=== PATIENT | female | born 1975 | race Caucasian/White ===

== ENCOUNTER → 2016-06-05 | Outpatient (CLI) | payer OTHER ==
[~2016-06-05] MED LIST: NKHM; NORCO 5-325 TA1 EACH PO; PERCOCET 325 MG1 TA2 PO; PRILOSEC20 MG PO
== END | disposition home or self-care (01) ==
LOC: RAD 10:46
DX: R07.9 Chest pain, unspecified (principal); R05 Cough; R09.89 Other specified symptoms and signs involving the circulatory and respiratory systems

== ENCOUNTER → 2017-04-30 | Outpatient (CLI) | payer OTHER ==
[~2017-04-30] MED LIST changes: +ADDERALL XR20 MG PO; +FLUOXETINE HCL10 MG PO
[2017-04-30 11:42] LABS: HEMOGLOBIN 15.2 g/dl (12.0-16.0); MEAN CORPUSCULAR HGB 31.1 pg (27.0-31.0); MEAN CORPUSCULAR HGB CONC 33.8 g/dl (33.0-37.0); MEAN PLATELET VOLUME 9.9 fl (9.6-12.3); RED BLOOD COUNT 4.89 10*6/uL (4.10-5.10); RED CELL DISTRI WIDTH 13.7 % (0-14.5); WHITE BLOOD COUNT 7.2 10*3/uL (4.8-10.8)
[2017-04-30 12:06] LABS: ALBUMIN 3.6 gm/dl (3.1-4.5); BUN 7 mg/dl (7-24); CHLORIDE 110 mmol/L (98-107); CREATININE 0.88 mg/dL (0.55-1.02); POTASSIUM 4.3 mmol/L (3.5-5.1); SODIUM 139 mmol/L (136-145)
[2017-04-30 12:10] LABS: ALKALINE PHOSPHATASE 137 U/L (45-117); CHOLESTEROL 167 mg/dL (<200); HDL CHOLESTEROL 57 mg/dl (40-60); LDL CHOLESTEROL 89 mg/dL (9-159); SGOT/AST 52 IU/L (3-35); SGPT/ALT 54 U/L (12-78); TOTAL PROTEIN 7.9 gm/dL (6.4-8.2); TRIGLYCERIDES 103 mg/dl (<150); VLDL CHOLESTEROL 21 mg/dL (6-40)
== END | disposition home or self-care (01) ==
LOC: LAB 11:05
PROVIDERS: Family Medicine
DX: E55.9 Vitamin D deficiency, unspecified (principal); R05 Cough; R07.9 Chest pain, unspecified; R53.83 Other fatigue; F17.200 Nicotine dependence, unspecified, uncomplicated

== ENCOUNTER → 2017-05-01 | Outpatient (CLI) | payer OTHER | END | disposition home or self-care (01) | LOC: MAMMO 08:50 | DX: N63.20 Unspecified lump in the left breast, unspecified quadrant (principal) ==

== ENCOUNTER 2017-05-02 12:34 | Emergency (ER) | payer OTHER ==
[~2017-05-02] VITALS: Ht 157.4 cm; Wt 54.4 kg
[~2017-05-02 12:34] MED LIST changes: -ADDERALL XR20 MG PO; -FLUOXETINE HCL10 MG PO
[2017-05-02] MEDS ORDERED: FLUOXETINE HCL10 MG PO (12:57)
[2017-05-02] MEDS ORDERED: ADDERALL XR20 MG PO (12:58)
[2017-05-02 14:05] LABS: BASO # 0.1 10*3/uL (0.0-0.1); BASO % 0.6 % (0.0-1.0); EOS # 0.1 10*3/uL (0.0-0.4); EOS % 1.5 % (1.0-4.0); HEMATOCRIT 42.2 % (37.0-47.0); HEMOGLOBIN 14.1 g/dl (12.0-16.0); LYMPH # 2.7 10*3/uL (1.3-4.4); LYMPH % 31.6 % (27.0-41.0); MEAN CELL VOLUME 92.3 fl (81.0-99.0); MEAN CORPUSCULAR HGB 30.9 pg (27.0-31.0); MEAN CORPUSCULAR HGB CONC 33.4 g/dl (33.0-37.0); MEAN PLATELET VOLUME 9.7 fl (9.6-12.3); MONO # 0.6 10*3/uL (0.1-1.0); MONO % 6.5 % (3.0-9.0); NEUT # 5.1 10*3/uL (2.3-7.9); NEUT % 59.6 % (47.0-73.0); PLATELET COUNT AUTOMATED 236 10*3/uL (130-400); RED BLOOD COUNT 4.57 10*6/uL (4.10-5.10); RED CELL DISTRI WIDTH 13.6 % (0-14.5); WHITE BLOOD COUNT 8.5 10*3/uL (4.8-10.8)
[2017-05-02 14:24] LABS: BUN 6 mg/dl (7-24); CHLORIDE 106 mmol/L (98-107); CREATININE 0.69 mg/dL (0.55-1.02); POTASSIUM 4.3 mmol/L (3.5-5.1); SODIUM 138 mmol/L (136-145)
[2017-05-02 14:26] LABS: TROPONIN I < 0.015 ng/ml (<0.045)
[2017-05-02 14:49] LABS: ACT PARTIAL THROMBO TIME 26.9 SECONDS (20.8-31.5); INTERNATIONAL NORM RATIO 1.1 (2.0-3.5)
== END 2017-05-02 17:25 | disposition home or self-care (01) ==
LOC: ED 12:34
PROVIDERS: Emergency Medicine
DX: S22.32XA Fracture of one rib, left side, initial encounter for closed fracture (principal); R09.1 Pleurisy; F17.200 Nicotine dependence, unspecified, uncomplicated; Z90.89 Acquired absence of other organs; Z79.899 Other long term (current) drug therapy; X58.XXXA Exposure to other specified factors, initial encounter; Y93.89 Activity, other specified; Y92.89 Other specified places as the place of occurrence of the external cause; Y99.9 Unspecified external cause status

== ENCOUNTER → 2017-11-25 | Outpatient (CLI) | payer OTHER ==
[~2017-11-25] MED LIST changes: +ADDERALL XR20 MG PO; +FLUOXETINE HCL10 MG PO
== END | disposition home or self-care (01) ==
LOC: RAD 09:58
DX: J42 Unspecified chronic bronchitis (principal); R07.81 Pleurodynia

== ENCOUNTER → 2017-11-26 | Outpatient (CLI) | payer OTHER ==
[2017-11-26 11:39] LABS: HEMATOCRIT 42.9 % (37.0-47.0); HEMOGLOBIN 13.7 g/dl (12.0-16.0); MEAN CORPUSCULAR HGB 30.6 pg (27.0-31.0); MEAN CORPUSCULAR HGB CONC 31.9 g/dl (33.0-37.0); RED BLOOD COUNT 4.47 10*6/uL (4.10-5.10); RED CELL DISTRI WIDTH 13.7 % (0-14.5); WHITE BLOOD COUNT 6.9 10*3/uL (4.8-10.8)
[2017-11-26 12:07] LABS: ALBUMIN 3.4 gm/dl (3.1-4.5); BUN 4 mg/dl (7-24); CHLORIDE 108 mmol/L (98-107); CHOLESTEROL 167 mg/dL (<200); CREATININE 0.81 mg/dL (0.55-1.02); POTASSIUM 3.7 mmol/L (3.5-5.1); SGOT/AST 62 IU/L (3-35); SGPT/ALT 68 U/L (12-78); SODIUM 139 mmol/L (136-145); TRIGLYCERIDES 129 mg/dl (<150); VLDL CHOLESTEROL 26 mg/dL (6-40)
[2017-11-26 12:17] LABS: ALKALINE PHOSPHATASE 169 U/L (45-117); CPK 71 U/L (26-192); HDL CHOLESTEROL 41 mg/dl (40-60); LDL CHOLESTEROL 100 mg/dL (9-159); TOTAL PROTEIN 7.4 gm/dL (6.4-8.2)
[2017-11-26 13:25] LABS: VITAMIN D, 25-HYDROXY 39.2 ng/mL (30-100)
[2017-11-27 08:09] LABS: HEPATITIS B SURFACE AG Negative (Negative); HEPATITIS C VIRUS ANTIBODY <0.1 s/co (0.0-0.9)
[2017-11-27 13:06] LABS: ANTI-DSDNA ANTIBODIES 096339 1 IU/mL (0-9)
[2017-11-27 14:08] LABS: ANTI-SMOOTH MUSCLE ANTIBODY 71 Units (0-19)
== END | disposition home or self-care (01) ==
LOC: LAB 11:09
PROVIDERS: Family Medicine
DX: J32.9 Chronic sinusitis, unspecified (principal); R10.9 Unspecified abdominal pain; K75.9 Inflammatory liver disease, unspecified; M25.50 Pain in unspecified joint; M79.1 Myalgia

== ENCOUNTER → 2017-11-27 | Outpatient (CLI) | payer OTHER | END | disposition home or self-care (01) | LOC: US 09:48 | DX: K75.4 Autoimmune hepatitis (principal); R10.11 Right upper quadrant pain ==

== ENCOUNTER → 2017-12-03 | Outpatient (CLI) | payer OTHER | END | disposition home or self-care (01) | LOC: LAB 12:14 | DX: R76.0 Raised antibody titer (principal) ==

== ENCOUNTER → 2017-12-04 | Outpatient (CLI) | payer OTHER | END | disposition home or self-care (01) | LOC: CT 10:00 | DX: K76.89 Other specified diseases of liver (principal) ==

== ENCOUNTER → 2017-12-25 | Outpatient (CLI) | payer OTHER ==
[2017-12-25 08:42] LABS: BASO # 0.1 10*3/uL (0.0-0.1); BASO % 0.7 % (0.0-1.0); EOS # 0.2 10*3/uL (0.0-0.4); EOS % 2.3 % (1.0-4.0); HEMATOCRIT 41.7 % (37.0-47.0); HEMOGLOBIN 13.5 g/dl (12.0-16.0); LYMPH % 27.4 % (27.0-41.0); MEAN CORPUSCULAR HGB 30.8 pg (27.0-31.0); MEAN CORPUSCULAR HGB CONC 32.4 g/dl (33.0-37.0); MEAN PLATELET VOLUME 9.5 fl (9.6-12.3); MONO # 0.7 10*3/uL (0.1-1.0); MONO % 9.2 % (3.0-9.0); NEUT # 4.5 10*3/uL (2.3-7.9); NEUT % 60.3 % (47.0-73.0); PLATELET COUNT AUTOMATED 266 10*3/uL (130-400); RED BLOOD COUNT 4.39 10*6/uL (4.10-5.10); RED CELL DISTRI WIDTH 13.5 % (0-14.5); WHITE BLOOD COUNT 7.4 10*3/uL (4.8-10.8)
[2017-12-25 09:24] LABS: ACT PARTIAL THROMBO TIME 25.7 SECONDS (20.8-31.5)
== END | disposition home or self-care (01) ==
LOC: LAB 08:12
PROVIDERS: Family Medicine
DX: K75.4 Autoimmune hepatitis (principal); K74.3 Primary biliary cirrhosis

== ENCOUNTER → 2018-01-14 | Outpatient (CLI) | payer OTHER ==
[2018-01-14 13:16] LABS: ALBUMIN 3.6 gm/dl (3.1-4.5); BILIRUBIN, DIRECT 0.1 mg/dL (0.0-0.2)
[2018-01-14 13:19] LABS: TOTAL PROTEIN 7.5 gm/dL (6.4-8.2)
[2018-01-22 21:09] LABS: TPMT GENOTYPE *1/*1 (.)
== END | disposition home or self-care (01) ==
LOC: LAB 12:23
PROVIDERS: Internal Medicine Gastroenterology
DX: K75.4 Autoimmune hepatitis (principal); K74.3 Primary biliary cirrhosis

== ENCOUNTER → 2018-08-26 | Outpatient (CLI) | payer OTHER | END | disposition home or self-care (01) | LOC: MAMMO 11:04 | DX: N63.21 Unspecified lump in the left breast, upper outer quadrant (principal); N63.11 Unspecified lump in the right breast, upper outer quadrant ==

== ENCOUNTER → 2019-03-16 | Outpatient (CLI) | payer OTHER ==
[2019-03-16 12:15] LABS: THYROID STIM HORMONE (HS) 1.21 uIU/ml (0.358-4.75)
[2019-03-17 08:06] LABS: RHEUMATOID ARTHRITIS FACTOR <10.0 IU/mL (0.0-13.9)
[2019-03-17 17:04] LABS: NUCLEAR DOT PATTERN >1:1280 (.)
== END | disposition home or self-care (01) ==
LOC: LAB 11:10
PROVIDERS: Family Medicine
DX: E55.9 Vitamin D deficiency, unspecified (principal); E78.00 Pure hypercholesterolemia, unspecified; M79.10 Myalgia, unspecified site; E74.9 Disorder of carbohydrate metabolism, unspecified; R53.83 Other fatigue

== ENCOUNTER → 2019-03-18 | Outpatient (CLI) | payer OTHER | END | disposition home or self-care (01) | LOC: RAD 11:01 | DX: M54.2 Cervicalgia (principal) ==

== ENCOUNTER → 2019-03-22 | Outpatient (CLI) | payer OTHER | END | disposition home or self-care (01) | LOC: LAB 10:09 | DX: R76.0 Raised antibody titer (principal) ==

== ENCOUNTER → 2019-03-23 | Outpatient (CLI) | payer OTHER ==
[2019-03-23 14:49] LABS: HEMATOCRIT 42.9 % (37.0-47.0); HEMOGLOBIN 13.8 g/dl (12.0-16.0); MEAN CELL VOLUME 96.8 fl (81.0-99.0); MEAN CORPUSCULAR HGB 31.2 pg (27.0-31.0); MEAN CORPUSCULAR HGB CONC 32.2 g/dl (33.0-37.0); MEAN PLATELET VOLUME 10.1 fl (9.6-12.3); RED BLOOD COUNT 4.43 10*6/uL (4.10-5.10); RED CELL DISTRI WIDTH 13.2 % (0-14.5); WHITE BLOOD COUNT 8.1 10*3/uL (4.8-10.8)
[2019-03-23 15:07] LABS: ALBUMIN 3.6 gm/dl (3.1-4.5); ALKALINE PHOSPHATASE 91 U/L (45-117); BUN 7 mg/dl (7-24); CHLORIDE 109 mmol/L (98-107); CREATININE 0.92 mg/dL (0.55-1.02); POTASSIUM 3.9 mmol/L (3.5-5.1); SGOT/AST 10 IU/L (3-35); SGPT/ALT 18 U/L (12-78); SODIUM 138 mmol/L (136-145); TOTAL PROTEIN 7.3 gm/dL (6.4-8.2)
[2019-03-24 04:05] LABS: RHEUMATOID ARTHRITIS FACTOR <10.0 IU/mL (0.0-13.9)
[2019-03-24 12:03] LABS: ANTI-DSDNA ANTIBODIES 096339 1 IU/mL (0-9)
== END | disposition home or self-care (01) ==
LOC: LAB 14:27
PROVIDERS: Family Medicine
DX: M25.50 Pain in unspecified joint (principal)

== ENCOUNTER → 2019-06-10 | Outpatient (CLI) | payer OTHER | END | disposition home or self-care (01) | LOC: NM 00:29 | DX: M25.50 Pain in unspecified joint (principal); M89.8X9 Other specified disorders of bone, unspecified site; K21.9 Gastro-esophageal reflux disease without esophagitis; M35.00 Sjogren syndrome, unspecified; R73.03 Prediabetes ==

== ENCOUNTER → 2019-09-21 | Outpatient (CLI) | payer OTHER | END | disposition home or self-care (01) | LOC: LAB 13:11 | DX: M25.50 Pain in unspecified joint (principal) ==

== ENCOUNTER → 2019-12-28 | Outpatient (CLI) | payer OTHER | END | disposition home or self-care (01) | LOC: COVID19 10:29 | PROVIDERS: ATTEND Family Medicine | DX: R05 Cough (principal); R50.9 Fever, unspecified; Z20.828 Contact with and (suspected) exposure to other viral communicable diseases ==

== ENCOUNTER → 2019-12-31 | Outpatient (CLI) | payer OTHER | END | disposition home or self-care (01) | LOC: RAD 10:03 | PROVIDERS: ATTEND Family Medicine | DX: J18.9 Pneumonia, unspecified organism (principal); R06.02 Shortness of breath; R05 Cough; R50.9 Fever, unspecified ==

== ENCOUNTER → 2020-05-01 | Outpatient (CLI) | payer OTHER ==
[2020-05-01 11:42] LABS: HEMATOCRIT 43.1 % (37.0-47.0); MEAN CELL VOLUME 91.7 fl (81.0-99.0); MEAN CORPUSCULAR HGB 30.4 pg (27.0-31.0); MEAN CORPUSCULAR HGB CONC 33.2 g/dl (33.0-37.0); MEAN PLATELET VOLUME 9.9 fl (9.6-12.3); RED BLOOD COUNT 4.7 10*6/uL (4.10-5.10); RED CELL DISTRI WIDTH 12.8 % (0-14.5); WHITE BLOOD COUNT 7.9 10*3/uL (4.8-10.8)
[2020-05-01 12:23] LABS: ALBUMIN 3.5 gm/dl (3.1-4.5); ALKALINE PHOSPHATASE 138 U/L (45-117); BUN 6 mg/dl (7-24); CHLORIDE 109 mmol/L (98-107); CREATININE 0.86 mg/dL (0.55-1.02); POTASSIUM 4.1 mmol/L (3.5-5.1); SGOT/AST 27 IU/L (3-35); SGPT/ALT 29 U/L (12-78); SODIUM 140 mmol/L (136-145); TOTAL PROTEIN 7.2 gm/dL (6.4-8.2)
[2020-05-02 04:06] LABS: RHEUMATOID ARTHRITIS FACTOR <10.0 IU/mL (0.0-13.9)
[2020-05-02 14:08] LABS: ANTI-SMOOTH MUSCLE ANTIBODY 26 Units (0-19)
== END | disposition home or self-care (01) ==
LOC: RAD 10:51
PROVIDERS: ATTEND Family Medicine
DX: K21.9 Gastro-esophageal reflux disease without esophagitis (principal); M25.50 Pain in unspecified joint; M79.10 Myalgia, unspecified site; M79.643 Pain in unspecified hand

== ENCOUNTER → 2020-05-09 | Outpatient (CLI) | payer OTHER | END | disposition home or self-care (01) | LOC: LAB 09:42 | PROVIDERS: ATTEND Family Medicine | DX: R76.0 Raised antibody titer (principal) ==

== ENCOUNTER → 2020-06-12 | Outpatient (CLI) | payer OTHER | END | disposition home or self-care (01) | LOC: COVID19 08:49 → RAD 08:49 | PROVIDERS: ATTEND Nurse Practitioner Family | DX: J18.1 Lobar pneumonia, unspecified organism (principal); R68.83 Chills (without fever); Z20.822 Contact with and (suspected) exposure to COVID-19 ==

== ENCOUNTER → 2020-06-28 | Outpatient (CLI) | payer OTHER | END | disposition home or self-care (01) | LOC: RAD 06-27 13:19 | PROVIDERS: ATTEND Family Medicine | DX: J18.9 Pneumonia, unspecified organism (principal) ==

== ENCOUNTER → 2020-06-30 | Outpatient (CLI) | payer OTHER ==
[2020-06-30 14:51] LABS: HEMATOCRIT 41.9 % (37.0-47.0); MEAN CELL VOLUME 92.1 fl (81.0-99.0); MEAN CORPUSCULAR HGB 29.9 pg (27.0-31.0); MEAN CORPUSCULAR HGB CONC 32.5 g/dl (33.0-37.0); MEAN PLATELET VOLUME 8.8 fl (9.6-12.3); RED BLOOD COUNT 4.55 10*6/uL (4.10-5.10); RED CELL DISTRI WIDTH 13.3 % (0-14.5); WHITE BLOOD COUNT 9.2 10*3/uL (4.8-10.8)
[2020-06-30 15:21] LABS: ALBUMIN 3.4 gm/dl (3.1-4.5); BILIRUBIN, DIRECT < 0.1 mg/dL (0.0-0.2); BUN 6 mg/dl (7-24); CHLORIDE 105 mmol/L (98-107); CREATININE 0.89 mg/dL (0.55-1.02); GAMMA GLUTAMYL TRANSPEPTIDASE 9 U/L (5-55); POTASSIUM 4.4 mmol/L (3.5-5.1); SGOT/AST 14 IU/L (3-35); SGPT/ALT 19 U/L (12-78); SODIUM 137 mmol/L (136-145)
[2020-06-30 15:23] LABS: ALKALINE PHOSPHATASE 146 U/L (45-117)
== END | disposition home or self-care (01) ==
LOC: LAB 14:33
PROVIDERS: ATTEND Family Medicine
DX: R10.9 Unspecified abdominal pain (principal); K75.4 Autoimmune hepatitis; K74.60 Unspecified cirrhosis of liver

== ENCOUNTER → 2020-10-05 | Outpatient (CLI) | payer OTHER | END | disposition home or self-care (01) | LOC: RAD | PROVIDERS: ATTEND Family Medicine | DX: R05 Cough (principal); R06.02 Shortness of breath ==

== ENCOUNTER → 2020-11-24 | Outpatient (CLI) | payer OTHER ==
[2020-11-24 12:59] LABS: ALBUMIN 3.6 gm/dl (3.1-4.5); ALKALINE PHOSPHATASE 143 U/L (45-117); BUN 3 mg/dl (7-24); CHLORIDE 104 mmol/L (98-107); CREATININE 0.77 mg/dL (0.55-1.02); GAMMA GLUTAMYL TRANSPEPTIDASE 14 U/L (5-55); POTASSIUM 3.8 mmol/L (3.5-5.1); SGOT/AST 23 IU/L (3-35); SGPT/ALT 27 U/L (12-78); SODIUM 137 mmol/L (136-145); TOTAL PROTEIN 7.3 gm/dL (6.4-8.2)
== END | disposition home or self-care (01) ==
LOC: LAB 11:45
PROVIDERS: ATTEND Family Medicine
DX: K75.4 Autoimmune hepatitis (principal)

== ENCOUNTER → 2020-12-06 | Outpatient (CLI) | payer OTHER | END | disposition home or self-care (01) | LOC: US 00:14 | PROVIDERS: ATTEND Family Medicine | DX: K75.4 Autoimmune hepatitis (principal); R05 Cough; R06.02 Shortness of breath ==

== ENCOUNTER → 2021-10-16 | Outpatient (CLI) | payer OTHER ==
[2021-10-17 04:06] LABS: RHEUMATOID FACTOR <10.0 IU/mL (<14.0)
[2021-10-18 04:06] LABS: CCP ANTIBODIES IGG/IGA 4 units (0-19)
== END | disposition home or self-care (01) ==
LOC: LAB 11:45
PROVIDERS: ATTEND Family Medicine
DX: M71.342 Other bursal cyst, left hand (principal); M79.641 Pain in right hand; M25.50 Pain in unspecified joint

== ENCOUNTER → 2021-10-19 | Outpatient (CLI) | payer OTHER | END | disposition home or self-care (01) | LOC: LAB 10:28 | PROVIDERS: ATTEND Family Medicine | DX: I71.4 Abdominal aortic aneurysm, without rupture (principal) ==

== ENCOUNTER → 2022-02-28 | Outpatient (CLI) | payer OTHER ==
[2022-02-28 09:49] LABS: HEMATOCRIT 39.7 % (37.0-47.0); MEAN CORPUSCULAR HGB 31.6 pg (27.0-31.0); MEAN CORPUSCULAR HGB CONC 32.2 g/dl (33.0-37.0); MEAN PLATELET VOLUME 9.2 fl (9.6-12.3); RED BLOOD COUNT 4.05 10*6/uL (4.10-5.10); RED CELL DISTRI WIDTH 14.5 % (0-14.5); WHITE BLOOD COUNT 10.8 10*3/uL (4.8-10.8)
== END | disposition home or self-care (01) ==
LOC: RAD 09:34
PROVIDERS: ATTEND Family Medicine
DX: J98.11 Atelectasis (principal); J18.9 Pneumonia, unspecified organism

== ENCOUNTER → 2022-03-21 | Outpatient (CLI) | payer OTHER | END | disposition home or self-care (01) | LOC: RAD 09:48 | PROVIDERS: ATTEND Family Medicine | DX: J18.9 Pneumonia, unspecified organism (principal) ==

== ENCOUNTER → 2022-06-11 | Outpatient (CLI) | payer OTHER ==
[2022-06-11 11:23] LABS: HEMATOCRIT 51.3 % (37.0-47.0); MEAN CELL VOLUME 92.1 fl (81.0-99.0); MEAN CORPUSCULAR HGB 30.7 pg (27.0-31.0); MEAN CORPUSCULAR HGB CONC 33.3 g/dl (33.0-37.0); MEAN PLATELET VOLUME 9.8 fl (9.6-12.3); RED BLOOD COUNT 5.57 10*6/uL (4.10-5.10); RED CELL DISTRI WIDTH 13.1 % (0-14.5); WHITE BLOOD COUNT 9.5 10*3/uL (4.8-10.8)
[2022-06-11 11:59] LABS: ALKALINE PHOSPHATASE 131 U/L (46-116); BUN 8 mg/dl (9-23); CHLORIDE 112 mmol/L (98-107); POTASSIUM 4.3 mmol/L (3.4-5.1); SGPT/ALT 93 U/L (10-49); TOTAL PROTEIN 7.6 gm/dL (6.0-8.0)
== END | disposition home or self-care (01) ==
LOC: LAB 10:52
PROVIDERS: ATTEND Family Medicine
DX: E55.9 Vitamin D deficiency, unspecified (principal); R10.9 Unspecified abdominal pain; R53.83 Other fatigue; M79.2 Neuralgia and neuritis, unspecified

== ENCOUNTER → 2022-06-19 | Outpatient (CLI) | payer OTHER ==
[2022-06-19 11:59] LABS: HEMATOCRIT 48.9 % (37.0-47.0); MEAN CELL VOLUME 89.7 fl (81.0-99.0); MEAN CORPUSCULAR HGB CONC 34.6 g/dl (33.0-37.0); RED BLOOD COUNT 5.45 10*6/uL (4.10-5.10); RED CELL DISTRI WIDTH 13.2 % (0-14.5); WHITE BLOOD COUNT 6.7 10*3/uL (4.8-10.8)
== END | disposition home or self-care (01) ==
LOC: LAB 11:32
PROVIDERS: ATTEND Family Medicine
DX: I10 Essential (primary) hypertension (principal); D58.2 Other hemoglobinopathies

== ENCOUNTER → 2022-11-19 | Outpatient (CLI) | payer OTHER ==
[2022-11-19 10:05] LABS: MEAN CELL VOLUME 96.3 fl (81.0-99.0); MEAN CORPUSCULAR HGB 33.4 pg (27.0-31.0); MEAN CORPUSCULAR HGB CONC 34.7 g/dl (33.0-37.0); MEAN PLATELET VOLUME 10.2 fl (9.6-12.3); RED BLOOD COUNT 4.88 10*6/uL (4.10-5.10); RED CELL DISTRI WIDTH 12.7 % (0-14.5); WHITE BLOOD COUNT 6.1 10*3/uL (4.8-10.8)
[2022-11-19 10:31] LABS: ALKALINE PHOSPHATASE 119 U/L (46-116); BUN 9 mg/dl (9-23); CHLORIDE 111 mmol/L (98-107); CHOLESTEROL 224 mg/dL (<200); LDL CHOLESTEROL 128 mg/dL (9-159); POTASSIUM 4.2 mmol/L (3.4-5.1); SGPT/ALT 27 U/L (10-49); TOTAL PROTEIN 7.3 gm/dL (6.0-8.0); TRIGLYCERIDES 113 mg/dl (<150)
[2022-11-19 10:51] LABS: VITAMIN D, 25-HYDROXY 37.2 ng/mL (30-100)
[2022-11-20 12:07] LABS: ANTI-DSDNA ANTIBODIES <1 IU/mL (0-9)
== END | disposition home or self-care (01) ==
LOC: LAB 09:47
PROVIDERS: ATTEND Family Medicine
DX: E55.9 Vitamin D deficiency, unspecified (principal); M25.50 Pain in unspecified joint; M79.10 Myalgia, unspecified site; R53.83 Other fatigue

== ENCOUNTER → 2023-03-14 | Outpatient (CLI) | payer OTHER | END | disposition home or self-care (01) | LOC: LAB 09:31 | PROVIDERS: ATTEND Family Medicine | DX: E80.6 Other disorders of bilirubin metabolism (principal); R74.01 Elevation of levels of liver transaminase levels ==

== ENCOUNTER → 2023-04-07 | Outpatient (CLI) | payer OTHER | END | disposition home or self-care (01) | LOC: RAD 01:44 | PROVIDERS: ATTEND Family Medicine | DX: M51.36 Other intervertebral disc degeneration, lumbar region (principal); M54.50 Low back pain, unspecified ==

== ENCOUNTER → 2023-06-25 | Outpatient (CLI) | payer OTHER ==
[2023-07-01 00:06] LABS: TESTOSTERONE FREE, (DIRECT) <0.2 pg/mL (0.0-4.2)
== END | disposition home or self-care (01) ==
LOC: LAB 00:51
PROVIDERS: ATTEND Family Medicine
DX: N95.1 Menopausal and female climacteric states (principal); K21.9 Gastro-esophageal reflux disease without esophagitis; G62.9 Polyneuropathy, unspecified; R61 Generalized hyperhidrosis; K75.9 Inflammatory liver disease, unspecified

== ENCOUNTER → 2024-02-23 | Outpatient (CLI) | payer OTHER | END | disposition home or self-care (01) | LOC: US 01:55 | PROVIDERS: ATTEND Family Medicine | DX: K76.0 Fatty (change of) liver, not elsewhere classified (principal) ==

== ENCOUNTER → 2024-03-22 | Outpatient (CLI) | payer OTHER | END | disposition home or self-care (01) | LOC: RAD 11:29 | PROVIDERS: ATTEND Family Medicine | DX: M25.552 Pain in left hip (principal); M54.50 Low back pain, unspecified ==

== ENCOUNTER → 2024-04-21 | Outpatient (CLI) | payer OTHER | END | disposition home or self-care (01) | LOC: RAD 00:30 | PROVIDERS: ATTEND Family Medicine | DX: M43.8X6 Other specified deforming dorsopathies, lumbar region (principal) ==

== ENCOUNTER → 2024-05-07 | Outpatient (CLI) | payer OTHER ==
[2024-05-07 10:24] LABS: HEMATOCRIT 47.2 % (37.0-47.0); MEAN CELL VOLUME 95.2 fl (81.0-99.0); MEAN CORPUSCULAR HGB 31.3 pg (27.0-31.0); MEAN CORPUSCULAR HGB CONC 32.8 g/dl (33.0-37.0); MEAN PLATELET VOLUME 10.1 fl (9.6-12.3); RED BLOOD COUNT 4.96 10*6/uL (4.10-5.10); RED CELL DISTRI WIDTH 13.2 % (0-14.5); WHITE BLOOD COUNT 6.7 10*3/uL (4.8-10.8)
[2024-05-07 11:15] LABS: ALKALINE PHOSPHATASE 145 U/L (46-116); BUN 8 mg/dl (9-23); CHLORIDE 110 mmol/L (98-107); CHOLESTEROL 202 mg/dL (<200); LDL CHOLESTEROL 117 mg/dL (9-159); POTASSIUM 4.3 mmol/L (3.4-5.1); SGPT/ALT 63 U/L (5-49); TOTAL PROTEIN 7.4 gm/dL (6.0-8.0); TRIGLYCERIDES 121 mg/dl (<150)
[2024-05-07 11:40] LABS: VITAMIN D, 25-HYDROXY 29.3 ng/mL (30-100)
== END | disposition home or self-care (01) ==
LOC: LAB 01:30
PROVIDERS: ATTEND Family Medicine
DX: R42 Dizziness and giddiness (principal); R11.0 Nausea; R53.83 Other fatigue; E55.9 Vitamin D deficiency, unspecified; Z79.899 Other long term (current) drug therapy

== ENCOUNTER → 2024-10-07 | Outpatient (CLI) | payer OTHER | END | disposition home or self-care (01) | LOC: RAD 03:01 | PROVIDERS: ATTEND Family Medicine | DX: M47.817 Spondylosis without myelopathy or radiculopathy, lumbosacral region (principal); M43.8X6 Other specified deforming dorsopathies, lumbar region; M54.50 Low back pain, unspecified ==

== ENCOUNTER → 2024-12-03 | Outpatient (CLI) | payer OTHER | END | disposition home or self-care (01) | LOC: US 00:09 | PROVIDERS: ATTEND Family Medicine | DX: I70.50 Unspecified atherosclerosis of nonautologous biological bypass graft(s) of the extremities (principal) ==

== ENCOUNTER → 2025-02-11 | Outpatient (CLI) | payer OTHER | END | disposition home or self-care (01) | LOC: US 01:34 | PROVIDERS: ATTEND Family Medicine | DX: K74.3 Primary biliary cirrhosis (principal); B19.9 Unspecified viral hepatitis without hepatic coma; N28.89 Other specified disorders of kidney and ureter; K82.8 Other specified diseases of gallbladder ==